=== PATIENT | female | born 1980 | race Asian ===

== ENCOUNTER 2018-01-31 20:11 | Emergency (ER) | payer OTHER ==
[2018-01-31 20:23] VITALS: BP 139/96
[2018-01-31 20:30] LABS: KETONES,URINE (UA) TRACE mg/dL (NEGATIVE); LEUKOCYTE ESTERASE, URINE LARGE (NEGATIVE); NITRITE,URINE POSITIVE (NEGATIVE); OCCULT BLOOD,URINE LARGE (NEGATIVE)
[2018-01-31 20:33] LABS: BILIRUBIN,URINE NEGATIVE (NEGATIVE); CLARITY,URINE CLOUDY (CLEAR); ICTOTEST,URINE NEGATIVE
[2018-01-31 20:35] LABS: HCG UR QUAL NEGATIVE
[2018-01-31 20:38] LABS: BACTERIA,URINE Few /HPF (None Seen); RBC,URINE TNTC /HPF (0-5); SQUAMOUS EPITHELIAL CELL,UR NONE SEEN (<= Few)
[2018-01-31] MEDS ORDERED: PHENAZOPYRIDINE 100 MG TABLET PO STA (20:45)
[2018-01-31] MEDS ORDERED: NITROFURANTOIN MACRO 100 MG CAPSULE PO STA (20:45)
--- NOTE | 2018-01-31 20:50 | ED Physician Documentation ---
PD HPI FEMALE - Stated complaint Stated Complaint: FEMALE - Chief complaint Chief Complaint: UTI - History obtained from History obtained from: Patient - History of Present Illness Timing - onset: Today Pain level max: 0 Pain level max: 0 Associated symptoms: Dysuria, Urinary frequency, Hematuria. No: Fever, Chest/shoulder pain, Abdominal pain, Back pain, Vaginal pain, Vaginal bleeding, Vaginal discharge Contributing factors: No: - Additional information Additional information: Patient is a 37 year old female who presents to the Emergency Department with c/o of uti symptoms including urinary urgency, frequency and burning. States the symptoms just began today. States she and her boyfriend were driving up from [place] and were driving all day today. Pt started taking AZO today. Also states that she just started her period today as well. Review of Systems Constitutional: denies: Fever, Chills, Fatigue Nose: denies: Rhinorrhea / runny nose, Congestion Throat: denies: Sore throat Cardiac: denies: Chest pain / pressure Respiratory: denies: Cough GI: denies: Abdominal Pain, Nausea, Vomiting, Constipation, Diarrhea : reports: Dysuria, Frequency Skin: denies: Rash Musculoskeletal: denies: Neck pain, Back pain Neurologic: denies: Headache Psychiatric: denies: Depressed, Anxiety PD PAST MEDICAL HISTORY - Past Medical History Past Medical History: No - Past Surgical History Past Surgical History: No - Present Medications Home Medications: Ambulatory Orders Medication Instructions Recorded Confirmed Nitrofurantoin Monohyd/M-Cryst 100 mg PO BID #10 capsule 01/31/18 [Macrobid 100 mg Capsule] Phenazopyridine HCl [Pyridium] 200 mg PO TID PRN #6 tablet 01/31/18 - Allergies Allergies/Adverse Reactions: Allergies Allergy/AdvReac Type Severity Reaction Status Date / Time No Known Drug Allergies Allergy Verified 01/31/18 20:23 - Social History Does the pt smoke?: No Smoking Status: Never smoker Does the pt drink ETOH?: No Does the pt have substance abuse?: No - Immunizations Immunizations are current?: Yes - POLST Patient has POLST: No PD ED PE NORMAL - Vitals Vital signs reviewed: Yes - General General: Alert and oriented X 3, No acute distress, Well developed/nourished - HEENT HEENT: Atraumatic, PERRL, Moist mucous membranes - Neck Neck: Supple, no meningeal sign - Cardiac Cardiac: RRR, No murmur - Respiratory Respiratory: Clear bilaterally - Abdomen Abdomen: Normal bowel sounds, Soft, Non tender - Back Back: No CVA TTP - Derm Derm: Normal color, Warm and dry - Extremities Extremities: No deformity - Neuro Neuro: Alert and oriented X 3 - Psych Psych: Normal mood, Normal affect Results - Vitals Vitals: Vital Signs - 24 hr 01/31/18 20:19 Temperature 36.4 C L Heart Rate 96 Respiratory 19 Rate Blood Pressure 139/96 H O2 Saturation 96 Oxygen O2 Source Room air - Labs Labs: Laboratory Tests 01/31/18 01/31/18 20:20 20:20 Urine Color ORANGE Urine Clarity CLOUDY Urine pH 5.0 Ur Specific [place] 1.025 1.025 Urine Protein DATA MODELING ARCHITECT Urine Glucose (UA) DATA MODELING ARCHITECT Urine Ketones TRACE Urine Occult Blood LARGE H Urine Nitrite POSITIVE H Urine Bilirubin NEGATIVE Urine Urobilinogen DATA MODELING ARCHITECT Ur Leukocyte Esterase LARGE H Urine RBC TNTC H Urine WBC >25 H Ur Squamous Epith Cells NONE SEEN Urine Bacteria Few Ur Microscopic Review INDICATED Urine Culture Comments INDICATED Urine HCG, Qual NEGATIVE PD MEDICAL DECISION MAKING - ED course Complexity details: reviewed results, re-evaluated patient, considered differential, d/w patient ED course: Patient is a 29-year-old female who presents to the emergency department with a UTI. Will place on antibiotics. She is well-appearing, nontoxic. Afebrile. No pyelonephritis. Not . Patient counseled regarding signs and symptoms for which I believe and urgent re-evaluation would be necessary. Patient with good understanding of and agreement to plan and is comfortable going home at this time This document was made in part using voice recognition software. While efforts are made to proofread this document, sound alike and grammatical errors may occur. - Sepsis Event Vital Signs: Vital Signs - 24 hr 01/31/18 20:19 Temperature 36.4 C L Heart Rate 96 Respiratory 19 Rate Blood Pressure 139/96 H O2 Saturation 96 Oxygen O2 Source Room air Departure - Departure Disposition: 01 Home, Self Care Clinical Impression: Urinary tract infection Qualifiers: Urinary tract infection type: acute cystitis Hematuria presence: without hematuria Qualified Code(s): N30.00 - Acute cystitis without hematuria Condition: Good Instructions: ED UTI Cystitis Female Follow-Up: your,doctor as needed [Other] Prescriptions: Nitrofurantoin Monohyd/M-Cryst [Macrobid 100 mg Capsule] 100 mg PO BID #10 capsule Phenazopyridine HCl [Pyridium] 200 mg PO TID PRN #6 tablet PRN Reason: dysuria Comments: Take all antibiotics until gone. Return if you worsen. This should improve over the next 24 hours. Discharge Date/Time: 01/31/18 21:12
== END 2018-01-31 21:12 | disposition home or self-care (01) ==
LOC: ED 20:11
DX: N30.00 Acute cystitis without hematuria (principal)
CPT/HCPCS: 81001; 81025; 87086; 99283; A9270; 81003; 87181

== ENCOUNTER 2018-03-17 16:38 | Emergency (ER) | payer OTHER ==
--- NOTE | 2018-03-17 16:42 | ED Physician Documentation ---
PD HPI OPHTHO - Stated complaint Stated Complaint: RT EYE DISCHARGE - History obtained from History obtained from: Patient - History of Present Illness Timing - onset: Today Timing - duration: Days (1) Timing - details: Abrupt onset, Waxing and waning Location: Right Quality / character: Aching Associated symptoms: Redness, Tearing, Discharge. No: FB sensation, Decreased vision Contributing factors: No: Exposed to conjunctivitis, Recent URI, FB, Wears contacts Similar symptoms before: Diagnosis (pink eye in the past, not recent. No URI symptoms.) Recently seen: Not recently seen Review of Systems Constitutional: denies: Fever, Chills Eyes: reports: Discharge, Irritation. denies: Decreased vision, Photophobia Ears: denies: Ear pain Nose: denies: Rhinorrhea / runny nose, Congestion Throat: denies: Sore throat Cardiac: denies: Chest pain / pressure Respiratory: denies: Cough Skin: denies: Rash, Lesions Musculoskeletal: reports: Other (right ulnar side hand and wrist/forearm with some pain on ROM and feeling of swelling with numbness to little finger and ulnar hand. Had flown back home 2 days ago and feeling it after that, but a little worse today. Had used right hand to maneuver rolling luggage and it was packed overweight, according to patient (had overwight label from airline to verify that).) Neurologic: reports: Numbness (right little finger since yesterday, intermittently.). denies: Focal weakness PD PAST MEDICAL HISTORY - Past Medical History Musculoskeletal: None - Past Surgical History Past Surgical History: No - Present Medications Home Medications: Ambulatory Orders Medication Instructions Recorded Confirmed Naproxen [Naprosyn] 500 mg PO BID #20 tablet 03/17/18 Sulfacetamide Sodium [Bleph-10] 2 - 3 drops RIGHTEYE QID #1 bottle 03/17/18 - Allergies Allergies/Adverse Reactions: Allergies Allergy/AdvReac Type Severity Reaction Status Date / Time No Known Drug Allergies Allergy Verified 01/31/18 20:23 - Social History Does the pt smoke?: No Smoking Status: Never smoker Does the pt drink ETOH?: No Does the pt have substance abuse?: No - Immunizations Immunizations are current?: Yes - POLST Patient has POLST: No PD ED PE NORMAL - Vitals Vital signs reviewed: Yes - General General: Alert and oriented X 3, No acute distress, Well developed/nourished - HEENT HEENT: PERRL, EOMI, Ears normal, Pharynx benign, Other (mild hyperemia right eye, with some lower conjuntival redness. Mild discharge. ) - Neck Neck: Supple, no meningeal sign, No adenopathy - Derm Derm: Normal color, Warm and dry - Extremities Extremities: Other (right forearm with some tenderness volar and ulnar side muscles, and at medial condyle. Tender at ulnar wrist, with slight swelling at wrist. Decreased sensation slightly in little finger. Not tender at AC, brachial nor axillary areas. ) Results - Vitals Vitals: Vital Signs - 24 hr 03/17/18 16:52 Temperature 37 C Heart Rate 73 Respiratory 16 Rate Blood Pressure 151/90 H O2 Saturation 98 Oxygen O2 Source Room air PD MEDICAL DECISION MAKING - ED course Complexity details: considered differential (main complaint of right eye irritation and discharge. Also while in ED, complains of right wrist and forearm pain with ROM and feeling of some swelling. Had flown 2 days prior and did have rolling bag that was overweight and she was using right arm to pull it. Feels pain with wrist and hand movement, some numbness in little finger. Tender in muscle forearm. Seens like muscle strain/tendonitis. ), d/w patient Departure - Departure Disposition: 01 Home, Self Care Clinical Impression: Tendinitis of right forearm Conjunctivitis, acute Qualifiers: Acute conjunctivitis type: bacterial Laterality: right Qualified Code(s): H10.31 - Unspecified acute conjunctivitis, right eye Condition: Stable Record reviewed to determine appropriate education?: Yes Instructions: ED Conjunctivitis Bacterial, ED Strain Muscle Ext Prescriptions: Naproxen [Naprosyn] 500 mg PO BID #20 tablet Sulfacetamide Sodium [Bleph-10] 2 - 3 drops RIGHTEYE QID #1 bottle Comments: For the right elbow forearm and hand, it sounds like some muscle inflammation/tendinitis. The ulnar nerve runs into that area so that would account for some numbness along the little finger and even some pain there to because of the pressure on the nerve. I would suggest some anti-inflammatories such as naproxen twice daily for the next week and also less use of the hand for the next few days and be sure your elbow is resting on some padding as you are typing. For the eye, use the antibiotic eyedrops every 2 hours this evening to get several doses in and then 3-4 times a day for the next few days after. It should feel better over the next day or two. Discharge Date/Time: 03/17/18 17:55
[2018-03-17 16:55] VITALS: BP 151/90
[2018-03-17] MEDS ORDERED: NAPROXEN 250 MG TABLET PO STA (17:31)
== END 2018-03-17 17:55 | disposition home or self-care (01) ==
LOC: ED 16:38
DX: H10.31 Unspecified acute conjunctivitis, right eye (principal); M77.9 Enthesopathy, unspecified
CPT/HCPCS: 99283; A9270

== ENCOUNTER 2018-03-30 15:45 | Emergency (ER) | payer OTHER ==
[2018-03-30 16:12] VITALS: BP 138/93
== END 2018-03-30 17:58 | disposition left against medical advice (07) ==
LOC: ED 15:45
DX: Z53.21 Procedure and treatment not carried out due to patient leaving prior to being seen by health care provider (principal)

== ENCOUNTER 2018-07-08 10:51 | Outpatient (CLI) | payer OTHER | END 2018-07-08 10:52 | disposition home or self-care (01) | LOC: SC 10:51 | PROVIDERS: ATTEND Internal Medicine Pulmonary Disease | DX: R06.81 Apnea, not elsewhere classified (principal); R06.83 Snoring | CPT/HCPCS: 99203; 99212 ==

== ENCOUNTER 2018-08-25 20:28 | Outpatient (CLI) | payer OTHER | END 2018-08-25 20:29 | disposition home or self-care (01) | LOC: SC 20:28 | PROVIDERS: ATTEND Internal Medicine Pulmonary Disease | DX: G47.33 Obstructive sleep apnea (adult) (pediatric) (principal) | CPT/HCPCS: 95810 ==

== ENCOUNTER 2018-09-22 12:46 | Outpatient (CLI) | payer OTHER | END 2018-09-22 12:47 | disposition home or self-care (01) | LOC: SC 12:46 | PROVIDERS: ATTEND Nurse Practitioner Family | DX: G47.33 Obstructive sleep apnea (adult) (pediatric) (principal) | CPT/HCPCS: 99212; 99214 ==

== ENCOUNTER 2019-04-05 12:38 | Outpatient (CLI) | payer OTHER | END 2019-04-05 12:39 | disposition EMS.NT | LOC: EMS 12:38 | PROVIDERS: ATTEND Surgery | DX: R00.2 Palpitations (principal) ==